=== PATIENT | female | born 1970 | race Caucasian/White ===

== ENCOUNTER → 2017-08-27 | Outpatient (CLI) | payer BC ==
--- NOTE | 2017-08-28 17:02 | MG ---
HISTORY: Screening Bilateral digital screening mammography with CAD. Comparison: May 06, 2014 and March 05, 2013 Findings: Implant displaced and non implant displaced CC and MLO views of both breasts were obtained. Bilateral subpectoral saline implants appear grossly intact. The breasts are heterogeneously dense without marsha picious interval change. There is overall diffuse increased density bilaterally as compared to the pr iors. There is no new or developing suspicious mass or architectural distortion. No suspicious cluste red microcalcifications are identified. There is a stable upper medial left breast nodule posteriorly . IMPRESSION: No mammographic evidence of malignancy. BI-RADS 2. Benign findings. Yearly mammographic imaging is recommended. * 0 (ZERO) - ASSESSMENT INCOMPLETE; ADDITIONAL IMAGING IS NEEDED. * 1/1 (ONE) - NEGATIVE. * 2/II (TWO) - BENIGN FINDINGS. * 3/III (THREE) - PROBABLY BENIGN FINDING; SHORT INTERVAL FOLLOW-UP SUGGESTED. * 4/IV (FOUR) - SUSPICIOUS ABNORMALITY; BIOPSY SHOULD BE CONSIDERED. * 5/V (FIVE) - HIGHLY SUSPICIOUS OF MALIGNANCY; BIOPSY SHOULD BE PERFORMED. * 6/ (SIX) - KNOWN MALIGNANCY. A NEGATIVE X-RAY REPORT SHOULD NOT DELAY BIOPSY IF A DOMINANT OR CLINICALLY SUSPICIOUS MASS IS PRESENT; 4 TO 8 PERCENT OF CANCERS ARE NOT IDENTIFIED BY X-RAY. A NEGA TIVE REPORT MAY REINFORCE THE CLINICAL IMPRESSION. ADENOSIS AND DENSE BREASTS MAY OBSCURE AN UNDERLY ING NEOPLASM. Reported By:
== END ==
LOC: RAD 08:49
PROVIDERS: ATTEND Nurse Practitioner Family
DX: Z12.31 Encounter for screening mammogram for malignant neoplasm of breast (principal)
CPT/HCPCS: 77067

== ENCOUNTER → 2018-02-20 | Outpatient (CLI) | payer BC ==
--- NOTE | 2018-02-20 07:40 | US ---
HISTORY: Right upper quadrant abdominal pain. Study: Right upper quadrant abdominal ultrasound. Comparison: None. Technique: Multiple vega scale and color flow Doppler images of the right upper quadrant were obtaine d. Findings: The liver is normal in echotexture and size. No intraparenchymal mass lesion or biliary du ctal dilatation is demonstrated. The gallbladder fails to demonstrate evidence for cholelithiasis or layering sludge. The common bile duct is unremarkable measuring 4 mm in diameter. No pericholecyst ic fluid or gallbladder wall thickening can be observed. The right kidney appears normal in size without focal parenchymal mass or nephrolithiasis. The right kidney measures 8.5 x 3.0 x 5.0 cm. No hydronephrosis or perirenal fluid can be observed. The incl uded portions of the pancreas are grossly unremarkable. IMPRESSION: Unremarkable sonographic examination of the right upper quadrant. Reported By:
== END ==
LOC: RAD 07:09
PROVIDERS: ATTEND Nurse Practitioner Family
DX: R10.11 Right upper quadrant pain (principal); R11.0 Nausea
CPT/HCPCS: 76705

== ENCOUNTER → 2018-03-08 | Outpatient (CLI) | payer BC ==
--- NOTE | 2018-03-08 11:19 | NM ---
HISTORY: Chronic right upper quadrant pain Study: Nuclear medicine HIDA scan with ejection fraction Comparison: Right upper quadrant ultrasound 02/20/2018 Technique: Multiple scintigraphic images of the abdomen were obtained after intravenous administratio n of 5.5 mCi of technetium labeled Choletec. Following distention of the gallbladder with radiotracer, 8 oz of PO Ensure Plus was administered and an estimated gallbladder ejection fraction was then calculated. Findings: Homogeneous uptake of radiotracer is seen throughout the liver. The intrahepatic biliary ductal syst em is observed normally. The common hepatic and common bile duct appear grossly unremarkable with no rmal biliary-bowel transit. The gallbladder is observed to fill normally. After PO administration of 8 oz of Ensure Plus, a gallbladder ejection fraction of 32% (normal > 35%) was observed. IMPRESSION: Borderline reduced gallbladder ejection fraction, suggestive for biliary dyskinesia. Reported By:
== END ==
LOC: RAD 08:49
PROVIDERS: ATTEND Nurse Practitioner Family
DX: R10.11 Right upper quadrant pain (principal)
CPT/HCPCS: 78227; A9537